=== PATIENT | female | born 1975 | race Two or more races ===

== ENCOUNTER 2017-09-18 08:44 | Outpatient (CLI) | payer OTHER | END 2017-09-18 10:23 | disposition home or self-care (01) | LOC: MAMO-SONO 08:44 | DX: Z12.31 Encounter for screening mammogram for malignant neoplasm of breast (principal); N60.11 Diffuse cystic mastopathy of right breast; N60.12 Diffuse cystic mastopathy of left breast; R10.31 Right lower quadrant pain; R10.32 Left lower quadrant pain; N80.3 Endometriosis of pelvic peritoneum ==

== ENCOUNTER 2017-12-12 11:54 | Outpatient (CLI) | payer OTHER | END 2017-12-12 13:51 | disposition home or self-care (01) | LOC: RAD 11:54 | DX: M25.512 Pain in left shoulder (principal) ==

== ENCOUNTER 2018-07-10 09:31 | Outpatient (CLI) | payer OTHER | END 2018-07-10 09:54 | disposition home or self-care (01) | LOC: RAD 09:31 | DX: M25.552 Pain in left hip (principal) ==

== ENCOUNTER 2018-07-25 13:18 | Outpatient (CLI) | payer OTHER | END 2018-07-25 13:26 | disposition home or self-care (01) | LOC: MRI 13:18 | DX: M25.552 Pain in left hip (principal) | CPT/HCPCS: 73721 ==

== ENCOUNTER 2020-05-06 09:25 | Outpatient (CLI) | payer OTHER | END 2020-05-06 10:03 | disposition home or self-care (01) | LOC: NUCLEAR 09:25 | PROVIDERS: ATTEND Physical Medicine & Rehabilitation | DX: I73.9 Peripheral vascular disease, unspecified (principal); Z11.59 Encounter for screening for other viral diseases; I87.8 Other specified disorders of veins ==

== ENCOUNTER 2020-05-10 08:59 | Outpatient (CLI) | payer OTHER | END 2020-05-10 09:09 | disposition home or self-care (01) | LOC: NUCLEAR 08:59 | PROVIDERS: ATTEND Physical Medicine & Rehabilitation | DX: I87.2 Venous insufficiency (chronic) (peripheral) (principal); I73.9 Peripheral vascular disease, unspecified; I87.8 Other specified disorders of veins ==

== ENCOUNTER 2020-09-21 09:25 | Outpatient (CLI) | payer OTHER | END 2020-09-21 09:31 | disposition home or self-care (01) | LOC: NUCLEAR 09:25 | PROVIDERS: ATTEND Internal Medicine Cardiovascular Disease | DX: R07.89 Other chest pain (principal); R00.2 Palpitations ==

== ENCOUNTER 2021-01-24 08:00 | Outpatient (CLI) | payer OTHER | END 2021-01-24 08:30 | disposition home or self-care (01) | LOC: PPH VACUNA 08:00 | PROVIDERS: ATTEND Emergency Medicine Pediatric Emergency Medicine | DX: Z23 Encounter for immunization (principal) ==

== ENCOUNTER 2021-10-13 12:51 | Outpatient (CLI) | payer OTHER ==
[~2021-10-13 12:51] MED LIST: NABUMETONE750 MG PO; ZANAFLEX2 MG PO
== END 2021-10-13 13:08 | disposition home or self-care (01) ==
LOC: MAMO-SONO 12:51
PROVIDERS: ATTEND Obstetrics & Gynecology
DX: N92.5 Other specified irregular menstruation (principal); N64.4 Mastodynia

== ENCOUNTER 2023-04-18 09:01 | Outpatient (CLI) | payer OTHER ==
[~2023-04-18 09:01] MED LIST changes: +DIAZEPAM2 MG PO; +DICLOFENAC POTA50 MG PO; +METAXALONE800 MG PO; +ORPHENADRI30 MG/1 M1 IJ; +TORADOL60 MG IM
== END 2023-04-18 09:03 | disposition home or self-care (01) ==
LOC: MAMO-SONO 09:01
PROVIDERS: ATTEND Pathology Anatomic Pathology & Clinical Pathology
DX: Z12.31 Encounter for screening mammogram for malignant neoplasm of breast (principal)

== ENCOUNTER 2023-06-13 11:13 | Outpatient (CLI) | payer OTHER | END 2023-06-13 11:23 | disposition home or self-care (01) | LOC: MRI 11:13 | DX: M25.562 Pain in left knee (principal) | CPT/HCPCS: 73721 ==

== ENCOUNTER 2024-06-23 10:54 | Outpatient (CLI) | payer OTHER | END 2024-06-23 10:59 | disposition home or self-care (01) | LOC: SONOGRAMA 10:54 | PROVIDERS: ATTEND Urology | DX: N20.0 Calculus of kidney (principal); N39.0 Urinary tract infection, site not specified ==

== ENCOUNTER 2025-02-09 08:54 | Outpatient (CLI) | payer OTHER | END 2025-02-10 10:22 | disposition home or self-care (01) | LOC: MAMO-SONO 08:54 | PROVIDERS: ATTEND Radiology Diagnostic Radiology | DX: N60.11 Diffuse cystic mastopathy of right breast (principal); Z12.31 Encounter for screening mammogram for malignant neoplasm of breast ==